=== PATIENT | female | born 1935 ===

== ENCOUNTER 2016-10-05 14:20 | Emergency (ER) | payer OTHER, MEDICARE ==
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
[2017-04-19] MEDS ORDERED: TENORMIN DPS50 MG PO (20:17)
[2017-04-19] MEDS ORDERED: SYNTHROID125 MCG PO (20:17)
[2017-04-19] MEDS ORDERED: ASA325 MG PO (20:17)
[2017-04-19] MEDS ORDERED: MIRALAX PACKET17 GM PO (20:17)
[2017-04-19] MEDS ORDERED: CELEXA DPS20 MG PO (20:17)
[2017-04-19] MEDS ORDERED: ULTRAM DPS50 MG PO (20:17)
[2017-04-19] MEDS ORDERED: SENEXON-S TABL1 EACH PO (20:18)
[2017-04-19] MEDS ORDERED: TYLENOL DPS325 MG PO (20:18)
[2017-04-19] MEDS ORDERED: PROTONIX40 MG PO (20:18)
== END 2016-10-05 15:43 | disposition home or self-care (01) ==
LOC: ER 14:20
DX: R51 Headache (principal); M25.511 Pain in right shoulder; M25.512 Pain in left shoulder; I10 Essential (primary) hypertension; E07.9 Disorder of thyroid, unspecified; Z79.899 Other long term (current) drug therapy; V49.50XA Passenger injured in collision with unspecified motor vehicles in traffic accident, initial encounter; Y92.410 Unspecified street and highway as the place of occurrence of the external cause

== ENCOUNTER 2017-04-10 11:13 | Inpatient (IN) | payer MEDICARE ==
[~2017-04-10] VITALS: Ht 149.9 cm; Wt 59.6 kg
--- NOTE | 2017-04-11 14:25 | NUR ---
PATIENT NOTE CONY HAS BEEN ADMITTED TO [facility] FROM [facility] WHERE SHE UNDERWENT A LEFT TOTAL KNEE SURGERY. CONY IS A ALERT, ORIENTED AND PLEASANT 81 YEAR OLD WHO LIVES HERE IN [place] WITH HER NAYELI. SHE DOES NOT SPEAK FAROESE AND UNDERSTANDS SOME, HER DTR. PRESENT AND INTERPRETED FOR ME. THE GOAL IS FOR HER TO RETURN TO HOME AND A SHORT REHAB STAY HERE. SHE IS HERE UNDER HER MEDICARE BENEFITS WITH THERAPY THE SKILLED SERVICE. SOCIAL WORK TO FOLLOW AND ASSIST WITH D/C PLANNING AND WITH CONCERNS OR NEEDS THAT MAY ARISE.
--- NOTE | 2017-04-18 13:54 | NUR ---
PATIENT NOTE CONY WILL BE D/C TO HER HOME FOLLOWING A 7 DAY [address] [facility]. SHE WILL CONTINUE HER PHYSICAL THERAPY ON AN OUTPT. BASIS, FAMILY WILL BE THE TRANSPORTATION. CONY REMAINS ALERT, ORIENTED AND VERY PLEASANT. SHE IS INDEPENDENT WITH HER ADL'S AND AMBULATION. I WISHED HER WELL AT HOME. FAMILY WILL BE HERE AT 4PM TO TRANSPORT HER HOME.
[2017-04-19] MEDS ORDERED: ASA325 MG PO (20:17)
[2017-04-19] MEDS ORDERED: SYNTHROID125 MCG PO (20:17)
[2017-04-19] MEDS ORDERED: CELEXA DPS20 MG PO (20:17)
[2017-04-19] MEDS ORDERED: TENORMIN DPS50 MG PO (20:17)
[2017-04-19] MEDS ORDERED: MIRALAX PACKET17 GM PO (20:17)
[2017-04-19] MEDS ORDERED: ULTRAM DPS50 MG PO (20:17)
[2017-04-19] MEDS ORDERED: PROTONIX40 MG PO (20:18)
[2017-04-19] MEDS ORDERED: SENEXON-S TABL1 EACH PO (20:18)
[2017-04-19] MEDS ORDERED: TYLENOL DPS325 MG PO (20:18)
== END 2017-04-18 16:28 | disposition home or self-care (01) | DRG 560 ==
LOC: SNU 11:13
PROVIDERS: ADMIT Internal Medicine
PROC: 3E0234Z Introduction of Serum, Toxoid and Vaccine into Muscle, Percutaneous Approach (ICD-10-PCS; principal; 2017-04-11)
PROC: F08Z4ZZ Home Management Treatment (ICD-10-PCS; 2017-04-14)
PROC: F07M3ZZ Motor Function Treatment of Musculoskeletal System - Whole Body (ICD-10-PCS; 2017-04-14)
DX: Z47.1 Aftercare following joint replacement surgery (principal); D62 Acute posthemorrhagic anemia; M06.9 Rheumatoid arthritis, unspecified; I45.10 Unspecified right bundle-branch block; I10 Essential (primary) hypertension; Z23 Encounter for immunization; M81.0 Age-related osteoporosis without current pathological fracture; E03.9 Hypothyroidism, unspecified; Z82.49 Family history of ischemic heart disease and other diseases of the circulatory system; Z11.1 Encounter for screening for respiratory tuberculosis